=== PATIENT | female | born 1985 | race Caucasian/White ===

== ENCOUNTER 2018-07-08 14:37 | Emergency (ER) | payer MEDICAID, SELFPAY ==
[2018-07-08] VITALS (15 sets, daily range): BP systolic 129–147; BP diastolic 77–93; PULSE 56–86; RESP 10–26; TEMP 36.8–37.1; O2SAT 95–99
--- NOTE | 2018-07-08 15:07 | DI.RAD_ITS ---
SYMPTOM/DIAGNOSIS: CHEST PAIN INTERMITTENT X 2 WEEKS, SEEMS PLEURITIC PA AND LATERAL CHEST: Comparison is made with 02 October 2015. The cardiac and mediastinal contours have a normal appearance. The lungs area well inflated and clear. No infiltrate, effusion or pleural thickening is seen. There is no evidence of pneumothorax. IMPRESSION: Negative chest x-ray.
--- NOTE | 2018-07-08 15:14 | W.ED.GENAD ---
Discharge Plan Disposition Patient Disposition: HOME Discharge Details Chief Complaint: GenMedical Clinical Impression: Chest pain Primary Care Provider: Yady Aragon ED Provider: Edison Hernandez Home Meds and New Rx's Prescriptions: Continue gabapentin 400 MG capsule 400 mg PO HS Qty: 2 RF: 0 albuterol sulfate 8.5 GM HFA aerosol inhaler 1 - 2 puff Inhalation Q6H PRN Qty: 1 RF: 1 methadone 10 MG/1 ML concentrate 100 mg PO DAILY Qty: 1 RF: 6 Discharge Instructions Instructions: Chest Pain (ED) Additional Instructions: Diagnostic testing today was inconclusive. Your ecg had findings consistent with left ventricular hypertrophy. Please contact your primary care physician to arrange follow-up. Return to the ER for any worsening or new concerning symptoms. Referrals: Yady Aragon [Primary Care Provider] - Discharge Data Discharge Date/Time-TO BE ENTERED AT DEPARTURE: 07/08/18 17:31 Medical Decision Making 15:20 --32-year-old female presents with 2 weeks of pleuritic chest pain is reproducible with cough, deep inspiration and certain positions. She is not tachycardic, tachypneic or hypoxic. She has not calf tenderness or swelling. ECG reviewed and interpreted by me: Sinus rhythm 79 bpm, normal axis, greater than 20 mm in aVF consistent with LVH, nondiagnostic. Old ECG reviewed and interpreted by me: LVH was not noted. Suspect costochondritis vs pleurisy. Consider pneumothorax. Will check cxr. Low risk for PE. Will check ddimer. 17:07 --labs reviewed and troponin negative. D-dimer negative. Chest x-ray nondiagnostic. Patient reassessed and remained stable. Suspect costochondritis vs pleurisy. Plan for discharge with outpatient follow-up. Disposition decision was made weighing the risks and benefits of hospitalization versus outpatient treatment, the risk for further decompensation, and the patient's wishes. The patient was stable and requested discharge. Prior to discharge, my usual and customary return precautions were reviewed with the patient- this included follow-up instructions and reason to return to the emergency department if condition worsens, does not improve as expected, or other new concerns arise. Imaging Data Radiologic Study: Imaging: X-Ray Radiologist's impression: Patient Name: FORREST BAJWA #: [id number]: ER Ordering Provider: : REG ER Primary Care Provider: Yady Aragon Date of Exam: 07/08/18ex: F : 1985Age: 32 Exam(s) EXAM: XR Chest, 2 Views EXAM DATE/TIME: 07/08/2018 4:01 PM CLINICAL HISTORY: 32 years old, female; Pain; Chest pain; On breathing; Patient HX: Chest pain intermittent x 2 weeks, seems pleuritic. TECHNIQUE: XR of the chest, 2 views. COMPARISON: CR CHEST 2 VIEWS PA,LAT 10/02/2015 9:28 PM FINDINGS: Lungs: Unremarkable. No consolidation. Pleural space: Unremarkable. No pleural effusion. No pneumothorax. Heart/Mediastinum: Unremarkable. No cardiomegaly. Bones/joints: Unremarkable. IMPRESSION: No acute findings. HPI General Mode of arrival: ambulatory. Date/Time Provider Initiated Documentation: 07/08/18 14:50. Limitations to Documentation: no limitations. Information obtained by: patient. HPI Narrative: 32yo f here with chief complaint of chest pain. Patient notes that for the past 2 weeks she has had intermittent left chest pain that is localized under her left breast and between and below her ribs. Pain is described as sharp. Pain is worse and reproducible with deep breath and with certain positions including sitting straight up at times. Pain can be severe at times. She also notes that she has had a cough recently. She has associated fatigue, bloated abdomen, mild nausea. No fevers. No recent immobility including no recent long distance travel, no surgeries, no lower extremity swelling or pain. Related Data Home Medications Medication Instructions Recorded Confirmed gabapentin 400 mg PO HS #2 04/17/15 07/08/18 albuterol sulfate 1 - 2 puff INHALATION Q6H PRN #1 05/22/15 07/08/18 inhaler methadone 100 mg PO DAILY #1 07/29/15 07/08/18 Allergies Allergy/AdvReac Type Severity Reaction Status Date / Time No Known Allergies Allergy Unverified 07/08/18 14:48 General Stated Complaint: GenMedical SUSI: 3 Review of Systems Review of Systems All systems reviewed & are unremarkable except as noted in HPI and below Cardiovascular Reports chest pain and Denies dyspnea Respiratory Reports cough and Denies dyspnea Gastrointestinal Denies abdominal pain, Reports bloating and Reports nausea PFSH Social History Smoking/Tobacco Use Status: Current every day Social History Smoking/Tobacco Use Status: Current every day Exam Const General: cooperative and no acute distress HENMT Head: normocephalic and atraumatic Mouth: mucous membranes dry Eyes Conjunctivae: normal conjunctivae Sclera: normal sclerae EOM: EOM intact bilaterally Neck Neck: trachea midline and supple Resp Auscultation: clear to auscultation bilaterally, no rales, no rhonchi and no wheezes Cardio Jugular venous pressure: no JVD Rate: regular rate and not tachycardic Rhythm: regular rhythm Heart Sounds: no gallops, no murmurs and no rubs GI Palpation: soft, not firm, no guarding, no masses, not rigid and nontender Skin General skin exam: no rashes or lesions noted Neuro General: alert, awake, oriented x3 and tone normal Extrem General: no calf tenderness bilaterally and no edema Psych Appearance: grossly normal Mental Status: mental status grossly normal Speech and Movement: speech and movement normal Course Vital Signs Temperature 37.1 C 07/08/18 14:43 Pulse 85 07/08/18 14:43 Respiratory Rate 16 07/08/18 14:43 Blood Pressure 132/84 07/08/18 14:43 Temperature 37.1 C 07/08/18 14:43 Temperature Source Temporal Artery Scan 07/08/18 14:43 Pulse 85 07/08/18 14:43 Respiratory Rate 16 07/08/18 14:43 Respiratory Effort Non-Labored 07/08/18 14:46 Blood Pressure 132/84 07/08/18 14:43 Blood Pressure Position Supine 07/08/18 14:43 Oxygen Delivery Method Room Air 07/08/18 14:43 Oxygen Flow Rate 0 07/08/18 14:43 Pain Level 8 07/08/18 14:43
--- NOTE | 2018-07-08 15:22 | ED.GENADUL_ITS ---
Discharge Plan Disposition Patient Disposition: HOME Discharge Details Chief Complaint: GenMedical Clinical Impression: Chest pain Primary Care Provider: Yady Aragon ED Provider: Edison Hernandez Home Meds and New Rx's Prescriptions: Continue gabapentin 400 MG capsule 400 mg PO HS Qty: 2 RF: 0 albuterol sulfate 8.5 GM HFA aerosol inhaler 1 - 2 puff Inhalation Q6H PRN Qty: 1 RF: 1 methadone 10 MG/1 ML concentrate 100 mg PO DAILY Qty: 1 RF: 6 Discharge Instructions Instructions: Chest Pain (ED) Additional Instructions: Diagnostic testing today was inconclusive. Your ecg had findings consistent with left ventricular hypertrophy. Please contact your primary care physician to arrange follow-up. Return to the ER for any worsening or new concerning symptoms. Referrals: Yady Aragon [Primary Care Provider] - Discharge Data Discharge Date/Time-TO BE ENTERED AT DEPARTURE: 07/08/18 17:31 Medical Decision Making 15:20 --32-year-old female presents with 2 weeks of pleuritic chest pain is reproducible with cough, deep inspiration and certain positions. She is not tachycardic, tachypneic or hypoxic. She has not calf tenderness or swelling. ECG reviewed and interpreted by me: Sinus rhythm 79 bpm, normal axis, greater than 20 mm in aVF consistent with LVH, nondiagnostic. Old ECG reviewed and interpreted by me: LVH was not noted. Suspect costochondritis vs pleurisy. Consider pneumothorax. Will check cxr. Low risk for PE. Will check ddimer. 17:07 --labs reviewed and troponin negative. D-dimer negative. Chest x-ray nondiagnostic. Patient reassessed and remained stable. Suspect costochondritis vs pleurisy. Plan for discharge with outpatient follow-up. Disposition decision was made weighing the risks and benefits of hospitalization versus outpatient treatment, the risk for further decompensation , and the patient's wishes. The patient was stable and requested discharge. Prior to discharge, my usual and customary return precautions were reviewed with the patient- this included follow-up instructions and reason to return to the emergency department if condition worsens, does not improve as expected, or other new concerns arise. Imaging Data Radiologic Study: Imaging: X-Ray Radiologist's impression: Patient Name: FORREST BAJWA #: [id number] : ER Ordering Provider: : REG ER Primary Care Provider: Yady Aragon Date of Exam: 07/08/18ex: F : 1985Age: 32 Exam(s) EXAM: XR Chest, 2 Views EXAM DATE/TIME: 07/08/2018 4:01 PM CLINICAL HISTORY: 32 years old, female; Pain; Chest pain; On breathing; Patient HX: Chest pain intermittent x 2 weeks, seems pleuritic. TECHNIQUE: XR of the chest, 2 views. COMPARISON: CR CHEST 2 VIEWS PA,LAT 10/02/2015 9:28 PM FINDINGS: Lungs: Unremarkable. No consolidation. Pleural space: Unremarkable. No pleural effusion. No pneumothorax. Heart/Mediastinum: Unremarkable. No cardiomegaly. Bones/joints: Unremarkable. IMPRESSION: No acute findings. HPI General Mode of arrival: ambulatory . Date/Time Provider Initiated Documentation: 07/08/18 14:50 . Limitations to Documentation: no limitations . Information obtained by: patient . HPI Narrative: 32yo f here with chief complaint of chest pain. Patient notes that for the past 2 weeks she has had intermittent left chest pain that is localized under her left breast and between and below her ribs. Pain is described as sharp. Pain is worse and reproducible with deep breath and with certain positions including sitting straight up at times. Pain can be severe at times. She also notes that she has had a cough recently. She has associated fatigue, bloated abdomen, mild nausea. No fevers. No recent immobility including no recent long distance travel, no surgeries, no lower extremity swelling or pain. Related Data Home Medications Medication Instructions Recorded Confirmed gabapentin 400 mg PO HS #2 04/17/15 07/08/18 albuterol sulfate 1 - 2 puff INHALATION Q6H PRN #1 05/22/15 07/08/18 inhaler methadone 100 mg PO DAILY #1 07/29/15 07/08/18 Allergies Allergy/AdvReac Type Severity Reaction Status Date / Time No Known Allergies Allergy Unverified 07/08/18 14:48 General Stated Complaint: GenMedical SUSI: 3 Review of Systems Review of Systems All systems reviewed & are unremarkable except as noted in HPI and below Cardiovascular Reports chest pain and Denies dyspnea Respiratory Reports cough and Denies dyspnea Gastrointestinal Denies abdominal pain, Reports bloating and Reports nausea PFSH Social History Smoking/Tobacco Use Status: Current every day Social History Smoking/Tobacco Use Status: Current every day Exam Const General: cooperative and no acute distress HENMT Head: normocephalic and atraumatic Mouth: mucous membranes dry Eyes Conjunctivae: normal conjunctivae Sclera: normal sclerae EOM: EOM intact bilaterally Neck Neck: trachea midline and supple Resp Auscultation: clear to auscultation bilaterally, no rales, no rhonchi and no wheezes Cardio Jugular venous pressure: no JVD Rate: regular rate and not tachycardic Rhythm: regular rhythm Heart Sounds: no gallops, no murmurs and no rubs GI Palpation: soft, not firm, no guarding, no masses, not rigid and nontender Skin General skin exam: no rashes or lesions noted Neuro General: alert, awake, oriented x3 and tone normal Extrem General: no calf tenderness bilaterally and no edema Psych Appearance: grossly normal Mental Status: mental status grossly normal Speech and Movement: speech and movement normal Course Vital Signs Temperature 37.1 C 07/08/18 14:43 Pulse 85 07/08/18 14:43 Respiratory Rate 16 07/08/18 14:43 Blood Pressure 132/84 07/08/18 14:43 Temperature 37.1 C 07/08/18 14:43 Temperature Source Temporal Artery Scan 07/08/18 14:43 Pulse 85 07/08/18 14:43 Respiratory Rate 16 07/08/18 14:43 Respiratory Effort Non-Labored 07/08/18 14:46 Blood Pressure 132/84 07/08/18 14:43 Blood Pressure Position Supine 07/08/18 14:43 Oxygen Delivery Method Room Air 07/08/18 14:43 Oxygen Flow Rate 0 07/08/18 14:43 Pain Level 8 07/08/18 14:43
[2018-07-08 15:37] LABS: Abs Immature Grans 0.01 k/cumm (0.0-0.09); Absolute Basophil Count 0.03 k/cumm (0.0-0.2); Absolute Eosinophil Count 0.15 k/cumm (0.0-0.7); Absolute Lymphocyte Count 1.48 k/cumm (1.2-3.4); Absolute Monocyte Count 0.36 k/cumm (0.11-0.7); Absolute Neutrophil Count 2.35 k/cumm (1.2-6.7); Basophils % 0.7; Eosinophils % 3.4; HCT 41.5 % (36.0-46.0); HGB 14.1 g/dL (12.0-15.5); Immature Grans % 0.2; Lymphocytes % 33.8; Mean Corpuscular Hemoglobin 31.5 pg (27.0-33.0); Mean Corpuscular Volume 92.6 fL (80-95); Mean Platelet Volume 10.2 fL (8.0-11.0); Monocytes % 8.2; Neutrophils % 53.7; Platelet Count 189 x1000/uL (130-400); RBC 4.48 m/cumm (4.00-5.20); RBC Distribution Width 12.5 % (11.7-14.6); White Blood Cell Count 4.38 k/cumm (4.4-10.8)
[2018-07-08] MEDS: Lactated Ringers 1,000 ML 1000 ML IV (15:43)
[2018-07-08 15:50] LABS: ALT 20 U/L (12-78); AST 16 U/L (15-37); Albumin 4.1 g/dL (3.4-5.0); Alkaline Phosphatase 58 U/L (46-116); Anion Gap 10.6 mmol/L (3-11); BUN 5 mg/dL (7-18); Bilirubin, Total 0.2 mg/dL (0.2-1.0); CO2 29.4 mmol/L (21.0-32.0); CREATININE 0.77 mg/dL (0.55-1.02); Chloride 101 mmol/L (98-107); Glucose 99 mg/dL (70-100); Potassium 3.6 mmol/L (3.5-5.1); Sodium 141 mmol/L (136-145); Total Protein 7.8 g/dL (6.4-8.2)
[2018-07-08 15:54] LABS: Troponin I < 0.02 ng/mL (0.00-0.06)
[2018-07-08 16:02] LABS: D-Dimer 424 ng/mlFEU (<500)
--- NOTE | 2018-07-08 16:09 | NUR.NOTE ---
pt currently crying stating that ana is currently going through family troubles and is extremely stressed and believes that her chest pain is a result of the stress she is currently under Nursing Note:
--- NOTE | 2018-07-08 16:20 | DI.VRAD_ITS ---
EXAM: XR Chest, 2 Views EXAM DATE/TIME: 07/08/2018 4:01 PM CLINICAL HISTORY: 32 years old, female; Pain; Chest pain; On breathing; Patient HX: Chest pain intermittent x 2 weeks, seems pleuritic. TECHNIQUE: XR of the chest, 2 views. COMPARISON: CR CHEST 2 VIEWS PA,LAT 10/02/2015 9:28 PM FINDINGS: Lungs: Unremarkable. No consolidation. Pleural space: Unremarkable. No pleural effusion. No pneumothorax. Heart/Mediastinum: Unremarkable. No cardiomegaly. Bones/joints: Unremarkable. IMPRESSION: No acute findings. Dictated and Authenticated by: Lydia Bourne MD. Ordering:LANIE CLIFFORD MD
== END 2018-07-08 17:31 | disposition home or self-care (01) ==
PROVIDERS: Emergency Provider Student in an Organized Health Care Education/Training Program; PCP Family Medicine
DX: R07.81 Pleurodynia (principal)
CPT/HCPCS: 36415; 80053; 93005; 96360; 99285; 71046; 83735; 84484; 85025; 85379; 93010; 99284

== ENCOUNTER 2018-09-19 20:46 | Outpatient (REF) | payer MEDICAID, SELFPAY ==
[2018-09-19 21:51] LABS: TSH (W/Ref FT4) 0.86 uIU/mL (0.358-3.74)
== END 2018-09-19 21:06 ==
LOC: NCHCN 20:46
PROVIDERS: PCP Family Medicine; Visit Provider Nurse Practitioner Family
DX: K59.00 Constipation, unspecified (principal)
CPT/HCPCS: 84443

== ENCOUNTER 2019-04-25 13:27 | Outpatient (REF) | payer MEDICAID, SELFPAY ==
[2019-04-25 21:56] LABS: ALT 15 U/L (14-59); AST 12 U/L (15-37); Albumin 4.2 g/dL (3.4-5.0); Alkaline Phosphatase 47 U/L (46-116); BUN 7 mg/dL (7-18); Bilirubin, Total 0.4 mg/dL (0.2-1.0); CREATININE 0.81 mg/dL (0.55-1.02); Calcium 8.9 mg/dL (8.5-10.1); Chloride 106 mmol/L (98-107); Glucose 62 mg/dL (70-100); Lipase 73 U/L (73-393); Potassium 3.4 mmol/L (3.5-5.1); Sodium 142 mmol/L (136-145); Total Protein 7.5 g/dL (6.4-8.2)
[2019-04-25 22:09] LABS: Abs Immature Grans 0.01 k/cumm (0.0-0.09); Absolute Basophil Count 0.03 k/cumm (0.0-0.2); Absolute Eosinophil Count 0.13 k/cumm (0.0-0.7); Absolute Lymphocyte Count 1.28 k/cumm (1.2-3.4); Absolute Monocyte Count 0.39 k/cumm (0.11-0.7); Basophils % 0.7; Eosinophils % 3.1; HCT 37.9 % (36.0-46.0); HGB 12.9 g/dL (12.0-15.5); Immature Grans % 0.2; Mean Corpuscular Hemoglobin 31.9 pg (27.0-33.0); Mean Corpuscular Volume 93.6 fL (80-95); Mean Platelet Volume 11.8 fL (8.0-11.0); Monocytes % 9.4; Neutrophils % 55.6; Platelet Count 222 x1000/uL (130-400); RBC 4.05 m/cumm (4.00-5.20); RBC Distribution Width 12.8 % (11.7-14.6); White Blood Cell Count 4.13 k/cumm (4.4-10.8)
[2019-04-25 22:31] LABS: Hemoglobin A1C 5.3 % (4.5-6.2)
== END 2019-04-25 13:47 ==
LOC: NCHCN 13:27
PROVIDERS: PCP Family Medicine; Visit Provider Nurse Practitioner Family
DX: R10.13 Epigastric pain (principal); R19.7 Diarrhea, unspecified; K59.00 Constipation, unspecified; F41.9 Anxiety disorder, unspecified
CPT/HCPCS: 80053; 83690; 83036; 85025

== ENCOUNTER 2019-05-09 01:40 | Outpatient (CLI) | payer MEDICAID, SELFPAY ==
--- NOTE | 2019-05-09 07:42 | DI.US_ITS ---
EXAM: US ABDOMEN CLINICAL HISTORY: EPIGASTRIC PAIN,R10.13. TECHNIQUE: Ultrasound performed using standard protocol. COMPARISON: None FINDINGS: The liver is normal in size and echogenicity. There is no biliary dilatation or evidence of focal liver lesions. Gallbladder is normal appearance, without evidence of stones or wall thickening. The kidneys normal in size and parenchymal thickness. No hydronephrosis or stones are seen. The spleen is normal in size. There is no ascites. The aorta normal in diameter. IMPRESSION: Negative abdomen ultrasound.
== END 2019-05-09 02:00 ==
PROVIDERS: PCP Family Medicine; Visit Provider Nurse Practitioner Family
DX: R10.13 Epigastric pain (principal)
CPT/HCPCS: 76700

== ENCOUNTER 2019-11-24 15:57 | Outpatient (REF) | payer MEDICAID, SELFPAY ==
[2019-11-25 17:35] LABS: COVID-19 RT-PCR UVMMC Result Negative (Negative)
== END 2019-11-24 16:17 ==
LOC: LBN 15:57
PROVIDERS: PCP Family Medicine; Visit Provider Nurse Practitioner Adult Health
DX: Z11.59 Encounter for screening for other viral diseases (principal)
CPT/HCPCS: U0003

== ENCOUNTER 2020-06-16 15:23 | Outpatient (REF) | payer MEDICAID, SELFPAY ==
[2020-06-19 17:01] LABS: SARS-CoV-2 RNA Not Detected (NotDetected); SARS-CoV-2 RNA Source Nasal/Nares
== END 2020-06-16 15:43 ==
LOC: LBN 15:23
PROVIDERS: PCP Family Medicine; Visit Provider Nurse Practitioner Adult Health
DX: Z11.59 Encounter for screening for other viral diseases (principal)
CPT/HCPCS: U0003

== ENCOUNTER 2020-06-26 20:41 | Outpatient (REF) | payer MEDICAID, SELFPAY ==
[2020-06-30 06:43] LABS: Patient Race White; SARS-CoV-2 RNA Undetected (Undetected); SARS-CoV-2 Specimen Source Nasal
== END 2020-06-26 21:01 ==
LOC: LBN 20:41
PROVIDERS: PCP Family Medicine; Visit Provider Nurse Practitioner Adult Health
DX: Z11.59 Encounter for screening for other viral diseases (principal)
CPT/HCPCS: U0003

== ENCOUNTER 2020-09-26 11:11 | Outpatient (REF) | payer MEDICAID, SELFPAY ==
--- NOTE | 2020-09-26 09:15 | PAPFT_PTH ---
PATIENT: Linette Mittal LOC: [facility] U#:[id number] AGE/SX: 35/F ROOM: RE09/26/[address]: Lolita Esquivel : 1985 BED: DIS: 09/26/2020 SPEC #: [id number] RECD: 09/26/20 17:04 STATUS: JUANY VERGARA #: [id number] MERVIN: 09/26/20 09:[address]: Lolita Esquivel [facility] Cyt[facility] RECD BY: Sarah Johnson ENTERED: 09/26/20 17:05 SP TYPE: PAPFT OTHR DR: Yady Aragon Tissues: 1 - CX/ENDOCX FOR PAP SMEARS Procedures: PAP THIN PREP/UVM Screening HPV DNA PROBE Comments: [id number]
== END 2020-09-26 11:12 | disposition home or self-care (01) ==
LOC: NCHCN 11:11
PROVIDERS: PCP Family Medicine; Visit Provider Nurse Practitioner Family
DX: Z12.4 Encounter for screening for malignant neoplasm of cervix (principal); Z11.51 Encounter for screening for human papillomavirus (HPV)
CPT/HCPCS: 88142; 87624

== ENCOUNTER 2020-10-03 15:36 | Outpatient (REF) | payer MEDICAID, SELFPAY ==
[2020-10-03 15:58] LABS: HCT 38.4 % (36.0-46.0); HGB 13.1 g/dL (11.2-15.7); MCH 31.6 pg (27.0-33.0); MCHC 34.1 % (32.0-36.0); MCV 92.8 fL (80-95); Platelet Count 184 10^3/uL (130-400); RBC 4.14 10^6/uL (3.93-5.22); RDW 11.9 % (11.7-14.6); WBC 5.17 10^3/uL (4.4-10.8)
[2020-10-03 16:25] LABS: ALT 30 U/L (14-59); AST 24 U/L (15-37); Alkaline Phosphatase 52 U/L (46-116); Anion Gap 10.6 mmol/L (3-11); BUN 10 mg/dL (7-18); Bilirubin, Total 0.6 mg/dL (0.2-1.0); CO2 25.4 mmol/L (21.0-32.0); CREATININE 0.7 mg/dL (0.55-1.02); Calculated LDL 139 mg/dL (<100); Chloride 105 mmol/L (98-107); Cholesterol 201 mg/dL (<200); Glucose 80 mg/dL (74-106); HDL Cholesterol 51 mg/dL (40-60); Potassium 4.5 mmol/L (3.5-5.1); Sodium 141 mmol/L (136-145); Total Protein 7.5 g/dL (6.4-8.2); Triglyceride 56 mg/dL (<150)
[2020-10-03 17:41] LABS: Vitamin D 25 Total 16.7 ng/ml (30-100)
== END 2020-10-03 15:37 | disposition home or self-care (01) ==
LOC: NCHCN 15:36
PROVIDERS: PCP Family Medicine; Visit Provider Nurse Practitioner Family
DX: Z13.220 Encounter for screening for lipoid disorders (principal); Z13.228 Encounter for screening for other metabolic disorders; Z13.21 Encounter for screening for nutritional disorder; Z00.00 Encounter for general adult medical examination without abnormal findings
CPT/HCPCS: 80053; 80061; 82306; 85027; 84443

== ENCOUNTER 2021-04-02 16:53 | Outpatient (REF) | payer MEDICAID, SELFPAY ==
[2021-04-03 19:40] LABS: COVID-19 RT-PCR UVMMC Result Negative (Negative)
== END 2021-04-02 16:54 | disposition home or self-care (01) ==
LOC: LBN 16:53
PROVIDERS: PCP Family Medicine; Visit Provider Family Medicine
DX: Z20.822 Contact with and (suspected) exposure to COVID-19 (principal)
CPT/HCPCS: U0003

== ENCOUNTER 2022-03-05 15:16 | Outpatient (REF) | payer MEDICAID, SELFPAY ==
[2022-03-05 15:57] LABS: Anion Gap 8.4 mmol/L (3-11); BUN 10 mg/dL (7-18); CO2 27.6 mmol/L (21.0-32.0); CREATININE 0.8 mg/dL (0.55-1.02); Calcium 9.2 mg/dL (8.5-10.1); Chloride 102 mmol/L (98-107); Glucose 87 mg/dL (74-106); Potassium 3.8 mmol/L (3.5-5.1); Sodium 138 mmol/L (136-145)
[2022-03-05 16:10] LABS: Vitamin D 25 Total 23.1 ng/mL (30-100)
== END 2022-03-05 15:17 | disposition home or self-care (01) ==
LOC: NCHCN 15:16
PROVIDERS: PCP Family Medicine; Visit Provider Nurse Practitioner Family
DX: F41.8 Other specified anxiety disorders (principal); F32.89 Other specified depressive episodes; K59.00 Constipation, unspecified; K21.9 Gastro-esophageal reflux disease without esophagitis; E55.9 Vitamin D deficiency, unspecified
CPT/HCPCS: 80048; 82306; 84443

== ENCOUNTER 2024-01-24 06:09 | Emergency (ER) | payer MEDICAID, SELFPAY ==
[2024-01-24 06:14] VITALS: BP 144/101; PULSE 75; RESP 16; TEMP 36.8; O2SAT 100
--- NOTE | 2024-01-24 06:14 | ED.GENADUL_ITS ---
Discharge Plan Disposition Patient Disposition: Home Condition: Good Discharge Details Clinical Impression: Conjunctivitis Primary Care Provider: Yady Aragon ED Provider: Navjot Shi [place] Meds and New Rx's Prescriptions: New erythromycin 5 mg/gram (0.5 %) ointment 0.5 inch ophthalmic (eye) QID Qty: 3.5 0RF Continued gabapentin 400 MG capsule 400 mg PO HS Qty: 2 albuterol sulfate 8.5 GM HFA aerosol inhaler 1 - 2 puff Inhalation Q6H PRN Qty: 1 Patient Comments: only uses when she has a cold Rx Instructions: 1-2 puffs q6h prn wheezing methadone 10 MG/1 ML concentrate 100 mg PO DAILY Qty: 1 Patient Comments: dose increased 07/16/15 Rx Instructions: pt receives dose daily at [facility] Discharge Instructions Instructions: Conjunctivitis ([facility]) ED, How to Use Eye Drops and Eye Ointment ED Additional Instructions: You were seen in the ED for eye irritation and redness. Given that it has been present for a week and worsening we will treat with antibiotic ointment which you should use 4 times a day for the next 5 to 7 days. Follow-up with primary care end of the week if not improving. Return to ED for any change in vision, increasing eye pain, swelling or redness involving the lids or orbital area. Referrals: Yady Aragon [Primary Care Provider] - [facility] General Mode of arrival: ambulatory . Date/Time Provider Initiated Documentation: 01/24/24 06:14 . Limitations to Documentation: no limitations . Information obtained by: patient . HPI Narrative: Patient presents to ED with left eye redness and discomfort. Patient has had symptoms for about 1 week now. Symptoms seemingly worse as opposed to improving despite using allergy drops. She denies any visual change. She denies pain just discomfort. She has had no other viral or allergy-like symptoms. She does not wear contacts. She does not recall getting anything in her eye. Related Data Home Medications Medication Instructions Recorded Confirmed gabapentin 400 mg capsule 400 mg PO HS ##2 04/17/15 01/24/24 albuterol sulfate 90 mcg/actuation 1 - 2 puff inhalation Q6H PRN ##1 05/22/15 01/24/24 aerosol inhaler methadone 10 mg/mL oral concentrate 100 mg PO DAILY ##1 07/29/15 01/24/24 erythromycin 5 mg/gram (0.5 %) eye 0.5 inch ophthalmic (eye) QID #3.5 01/24/24 ointment grams Previous Rx's Medication Instructions Recorded erythromycin 5 mg/gram (0.5 %) eye 0.5 inch ophthalmic (eye) QID #3.5 01/24/24 ointment grams Allergies Allergy/AdvReac Type Severity Reaction Status Date / Time No Known Allergies Allergy Unverified 01/24/24 06:18 General SUSI: 3 Review of Systems Narrative: Per HPI Exam Narrative Exam Narrative: Const: WDWN female in NAD. VS per triage. HEENT: NC/AT. Normal facial exam. Eyes: PERRL and EOMI. Lids normal. Injected conjunctiva. No obvious foreign body. No fluorescein uptake. Visual acuity per nursing note. Neck: Supple. Trachea midline. Lungs: Normal respiratory effort. Neuro: A+O x 3. Normal speech, mentation, gait. Cranial nerves II - XII grossly intact. No gross motor or sensory deficit. Medical Decision Making Patient presenting to ED with left eye redness and discomfort. Symptoms ongoing for 1 week and worsening. No corneal uptake and no obvious foreign body. No definite purulent discharge but given worsening over course of [address] on antibiotic drops and have her follow-up with primary care end of the week if not improving. Return precautions provided. [facility] All Active Problems (Updated 01/24/24 @ 06:33 by Navjot Shi MD) Conjunctivitis (Acute) Social History Smoking/Tobacco Use Status: Current every day Smoking risk assessment performed?: Yes Drug use: Current Sobriety Do you feel safe in your relationship?: Yes
[2024-01-24] MEDS: Fluorescein STRIPS 100/BOX 1 MG OP (06:23)
[2024-01-24] MEDS: Erythromycin Ophth Oint 3.5 GM TUBE OS (06:51)
[2024-01-24 06:56] VITALS: BP 140/80; PULSE 78; RESP 18; TEMP 36.7; O2SAT 100
== END 2024-01-24 07:00 | disposition home or self-care (01) ==
LOC: ER 06:52
PROVIDERS: Emergency Provider Emergency Medicine; PCP Family Medicine
DX: H10.9 Unspecified conjunctivitis (principal)
CPT/HCPCS: 99283

== ENCOUNTER 2024-08-15 16:56 | Outpatient (REF) | payer SELFPAY ==
[2024-08-15 16:11] LABS: ESR 13 mm/hr (0-20)
[2024-08-15 16:47] LABS: C-Reactive Protein < 0.50 mg/dL (<or=0.5)
--- OUTSIDE RECORDS SUMMARY | 2024-08-15 17:28 | XMS_ITS | Encounter Summary ---
Author Organization [facility] [address] [place] [address] Care Team Providers Care Stock Chaser Name Role Phone Unavailable Primary Care Provider Unavailabl e Encounter Details Date Type Department Care Team (Latest Contact Info) Description 06/17/2020 5:45 PM EST - 06/17/2020 11:59 PM EST [place] [address] Discharge Disposition: Home Social History Tobacco Use Types Packs/Day Years Used Date Smoking Tobacco: Never Assessed Sex and Gender Information Value Date Recorded Sex Assigned at Not on file Gender Identity Not on file Sexual Orientation Not on file documented as of this encounter Plan of Treatment Not on file documented as of this encounter Procedures Procedure Name Priority Date/Time Associated Diagnosis Comments COVID-19 PCR Routine 06/17/2020 7:15 PM EST documented in this encounter Results * COVID-19 PCR (06/17/2020 7:15 PM EST) SARS-CoV-2 RNA Not Detected Not Detected [facility] Comment: This result should be interpreted in combination with the clinical observations, patient history and epidemiological information in making a final diagnosis. For testing of asymptomatic individuals, assay performance characteristics and clinical utility have not been evaluated. Testing for SARS-CoV-2 (Severe acute respiratory syndrome coronavirus 2, formerly known as 2019 novel coronavirus or 2019-nCoV) to aid in the diagnosis of COVID-19 is performed using the [employer] Real[employer] SARS-CoV-2 Assay as authorized by the FDA Emergency Use Authorization (EUA). This EUA assay is intended for In-vitro Diagnostic (IVD) use with respiratory specimens such as nasopharyngeal swabs collected from individuals during the acute phase of infection. This assay is performed based on the instructions for use provided by [employer] and additional guidance provided by CDC and FDA. Testing is performed in the [facility] within the Department of Pathology and Laboratory Medicine at [facility], certified under the Clinical Laboratory Improvement Amendments of 1988 (CLIA), 42 U.S.C. 263a, to perform high complexity tests. Assay performance has been verified according to clinical laboratory regulatory requirements for use with specimens collected from individuals suspected of COVID-19. Test results are provided above. A result of ? Not Detected? indicates that the viral RNA target is not present above the limit of detection, but does not preclude SARS-CoV-2 infection. False negative results may occur if a specimen is improperly collected, transported or handled; if amplification inhibitors are present; or if inadequate numbers of viral particles are present in the specimen. When a diagnostic test is negative, the possibility of a false negative result should be considered in the context of a patient? s recent exposures and the presence of clinical signs and symptoms consistent with COVID-19. A result of ? Detected? indicates that RNA from SARS-CoV-2 was detected and the patient is infected. As required or requested by public health authorities, positive specimens may be sent for additional testing. Positive and negative predictive values for this test are highly dependent on disease prevalence. A result of ? Invalid? indicates that neither the viral RNA targets nor the internal control target was detected. An invalid result suggests the presence of inhibitors. Recollection and re-testing is recommended in the case of an invalid result. CDC COVID-19 criteria for testing on human specimens and clinical management guidance information are available at the CDC Coronavirus Disease 2019 (COVID-19) webpage under ? Information for Healthcare Professionals? (https://www.cdc.gov/coronavirus/2019-ncov/hcp/index.html) Additional information about this and other EUA tests can be found in provider and patient fact sheets at the following FDA website: https://www.fda.gov/medical-devices/cvurnqyzahz-claglep-0162-uvvht-33-wipzlqlwb- use-a wvnxvyxcrcgzs-mrxcewk-cqsvgui/tsdkp-peyoeeazqnt-vwud SARS-CoV-2 RNA Source Nasal [facility] Specimen from nose (specimen) Other / Unknown 06/17/2020 7:15 PM EST 06/19/2020 1:36 AM EST Narrative Resulting Agency Comment Spec In Lab [employer] ORDERABLE S Performing Organization Address City/State/[place] Co de Phone Number [facility] [place] [address] documented in this encounter Visit Diagnoses Not on filedocumented in this encounter
--- OUTSIDE RECORDS SUMMARY | 2024-08-15 17:28 | XMS_ITS | Clinical Summary ---
Author Organization [place] [address] Care Team Providers Care Strip Winder Name Role Phone Unavailable Primary Care Provider Unavailabl e Social History Tobacco Use Types Packs/Day Years Used Date Smoking Tobacco: Never Assessed Sex and Gender Information Value Date Recorded Sex Assigned at Not on file Gender Identity Not on file Sexual Orientation Not on file Plan of Treatment Health Maintenance Due Date Last Done Comments HIV screen 2003 Hepatitis C Screening 2003 Hepatitis B vaccine (0-59 yrs) (1) 2004 Tetanus/Diphtheria/Pertussis Vaccines (1 - Tdap) 08/19 HPV test 2015 PAP Smear 2015 Covid-19 Vaccine ( - 2023- season) 2024 Influenza (Flu) vaccine (1 o f 1 - Influenza standard series) 04/02/2024
--- OUTSIDE RECORDS SUMMARY | 2024-08-15 17:28 | XMS_ITS | Referral Summary ---
Author Organization [facility] Address [address] [place] [address] Care Team Providers Care Pick Remover Name Role Phone Roseanne Gruber STRAW HAT BRIM RAISER OPERATOR Primary Care Provider [phone] Encounters Date Type Department Care Team Description 08/15/2024 Lab Requisition [facility] Pathology & Laboratory Medicine - [facility] [address] [place] [address] Outr Resulting Lab, Provider from Last 3 Months Social History Tobacco Use Types Packs/Day Years Used Date Smoking Tobacco: Never Assessed Comments Unknown Sex and Gender Information Value Date Recorded Sex Assigned at Not on file Legal Sex Female 18:29 EST Gender Identity Not on file Sexual Orientation Not on file Plan of Treatment Not on file Care Teams Pick Remover Relationship Specialty Start Date End Date Roseanne Gruber, MAURICIO [facility] [address] [place], [place] [address] PCP - General 04/10/09
--- OUTSIDE RECORDS SUMMARY | 2024-08-15 17:28 | XMS_ITS | Clinical Summary ---
Author Organization [facility] Address [address] [place] [address] Care Team Providers Care Medical Office Representative Name Role Phone Roseanne Gruber INSIDE SALES Primary Care Provider [phone] Encounters Date Type Department Care Team Description 08/15/2024 Lab Requisition [facility] Pathology & Laboratory Medicine - [facility] [address] [place] [address] Outr Resulting Lab, Provider from Last 3 Months Social History Tobacco Use Types Packs/Day Years Used Date Smoking Tobacco: Never Assessed Comments Unknown Sex and Gender Information Value Date Recorded Sex Assigned at Not on file Legal Sex Female 18:29 EST Gender Identity Not on file Sexual Orientation Not on file Plan of Treatment Health Maintenance Due Date Last Done Comments Hepatitis C Screen 1985 Hepatitis B Vaccine (1 of 3 - 19+ 3-dose series) 08/19 COVID-19 Vaccine ( season) 2024 Care Teams Medical Office Representative Relationship Specialty Start Date End Date Roseanne Gruber, MAURICIO [facility] [address] [place] [address] PCP - General 04/10/09
--- OUTSIDE RECORDS SUMMARY | 2024-08-15 17:28 | XMS_ITS | Encounter Summary ---
Author Organization [facility] Address [address] [place] [address] Care Team Providers Care Network Development Coordinator Name Role Phone Roseanne Gruber SPEECH CORRECTION ASSISTANT Primary Care Provider [phone] Encounter Details Date Type Department Care Team (Late st Contact Info) Description 08/15/2024 Lab Requisition [facility] Pathology & Laboratory Medicine - [facility] [address] [place] [address] Outr Resulting Lab, Provider Social History Tobacco Use Types Packs/Day Years Used Date Smoking Tobacco: Never Assessed Comments Unknown Sex and Gender Information Value Date Recorded Sex Assigned at Not on file Legal Sex Female 18:29 EST Gender Identity Not on file Sexual Orientation Not on file documented as of this encounter Plan of Treatment Scheduled Orders Name Type Priority Associated Diagnoses Orde r Schedule SM (LANTIGUA) ANTIBODY, IGG Lab Routine Ordered: 08/15/2024 MACHINE TAPER ANTIBODY, IGG Lab Routine Ordered : 08/15/2024 DOUBLE STRANDED DNA ANTIBODY , IGG Lab Routine Ordered: 025 documented as of this encounter Visit Diagnoses Not on filedocumented in this encounter Care Teams Network Development Coordinator Relationship Specialty Start Date End Date Roseanne Gruber NP [facility] [address] [place] [address] PCP - General 04/10/09 documented as of this encounter
--- OUTSIDE RECORDS SUMMARY | 2024-08-15 17:29 | XMS_ITS | Encounter Summary ---
Author Organization [facility] Address [address] [place] [address] Care Team Providers Care Nurse Manager Name Role Phone Allyn Roseanne Hernán MARTÍNEZ Primary Care Provider [phone] Encounter Details Date Type Department Care Team (Late st Contact Info) Description 02/27/2002 Results Only [facility] - Maple conversion [address] [place] [address] Kojo Liu MD [address] [place] [address] Social History Tobacco Use Types Packs/Day Years [...] Procedure Name Priority Date/Time Associated Diagnosis Comments SURGICAL PATHOLOGY Routine 02/27/2002 0:00 EDT documented in this encounter Results * SURGICAL PATHOLOGY (02/27/2002 0:00 EDT) Pathology Report: SURGICAL PATHOLOGY REPORT Reports generated via electronic interface contain original data; however they are lacking the format of the original report. Caution should be taken when reading/interpreti ng unformatted reports. Name: ? FORREST BAJWA ? Accession #: ? [id number] ? : ? 1985 (Age: 16) ??F ? Collect Date: ? 02/27/2002 ? Location: ? [facility] ? Receive Date: ? 02/27/2002 ? Provider: KOJO LIU MD Copy to: YASIR LÓPEZ MD ? Final Pathologic Diagnosis: ? Ovary, left, subtotal excision, and fallopian tube, excision: - Simple serous cyst ??of ovary. - Adherent fallopian tube with no pathologic features. ?? Document reviewed and electronically signed by: Radu Ward MD Report ??Date: 03/01/2002 17:15 By the signature above, the attending physician certifies that he/she has personally conducted a gross and/or microscopic examination of the described specimens and rendered or confirmed the above diagnosis. Specimen(s) Received: ? Left ovarian cyst wall, portion ovary, fallopian tube Clinical History: Nullip with asx L ovary cystic mass Gross Description: ? Received in formalin labelled [place] and left ovary cyst wall with portion ovary and fallopian tube is a portion of ovary that is previously excised into two irregular fragments which measure 4.5 x 4.0 x 0.2 cm and 11.0 x 3.0 x 0.2 cm. ??The ovarian wall varies in thickness with less than 0.1 cm in thickness in some areas and 0.2 cm in others. ??The serosal surface is correa-pink with diffuse patches of hemorrhage. ??The inner lining of the ovarian wall is correa-pink and focally hemorrhagic. ??Attached to the larger fragment of ovary is a fallopian tube which measures 4.5 cm in length and 0.3 cm in diameter. ??The fallopian tube has a pink-correa, smooth, glistening serosal surface and is patent. Top Lift Scourer sections of fallopian tube are submitted as (A1). Top Lift Scourer sections of larger portion of ovary with attached fallopian tube are submitted as (A2) to (A7). ??Top Lift Scourer sections of smaller portion of ovary are submitted as (A8) to (A10). ??(Oliver Blair)/[facility] End of Report [facility] 02/27/2002 02/27/2002 16: 04 EDT us Kojo Liu MD PATHOLOGY ORDERABLES Final Resul t [facility] [address] [place] [address] documented in this encounter Visit Diagnoses Not on filedocumented in this encounter Care Teams Nurse Manager Relationship Specialty Start Date End Date Roseanne Gruber NP [facility] [address] [place] [address] PCP - General 04/10/09 documented as of this encounter
--- OUTSIDE RECORDS SUMMARY | 2024-08-15 17:29 | XMS_ITS | Encounter Summary ---
Author Organization [facility] Address [address] [place] [address] Care Team Providers Care Manufacturing Helper Name Role Phone Roseanne Gruber NP Primary Care Provider [phone] Encounter Details Date Type Department Care Team (Latest Contact Info) Description 09/27/2020 Lab Requisition [facility] Pathology & Laboratory Medicine - [facility] [address] [place] [address] Lolita Esquivel, FORMULATION SCIENTIST [address] [place] [phone] Encounter for gynecological examination (general) (routine) without abnormal findings Social History Tobacco Use Types Packs/Day Years [...] Procedure Name Priority Date/Time Associated Diagnosis Comments PAP TEST Today 09/26/2020 9:15 EST Encounter for gynecological examination (general) (routine) without abnormal findings HPV DNA DETECTION WITH GENOTYPING, PCR Today 09/26/2020 9:15 EST Encounter for gynecological examination (general) (routine) without abnormal findings documented in this encounter Results * HUMAN PAPILLOMAVIRUS (HPV) DETECTION-HIGH RISK TYPES (09/26/2020 9:15 EST) HPV other High Risk types, PCR Negative Negative 10/07/2020 15:19 [facility] Comment:No E6 or E7 mRNA is detected from HPV types 16,18,31,33,35,39,45,51,52,56,58,59,66, and 68 by entry level assistant manager mediated amplification. Papanicolaou smear specimen (specimen) CERVIX UTERI STRUCTURE / Unknown 09/26/2020 9:15 EST 10/04/2020 8:38 EST us Lolita Esquivel NP MICROBIOLOGY - GENERAL ORDERABLE S Final Result [facility] [address] [place] [address] * PAP TEST (09/26/2020 9:15 EST) Specimens A. Cervix and/or Endocervix , ThinPrep Imaging System with Manual Evaluation 10/07/2020 15:19 [facility] Specimen Adequacy Satisfactory for Evaluation - transformation zone component present 10/07/2020 15:19 [facility] General Categorization Negative for intraepithelial lesion or malignancy 10/07/2020 15:19 [facility] Attestation . 10/07/2020 15:19 [facility] at 1519 Clinical History See below 10/08/19 15:19 [facility] HPV The result for the Human Papillomavirus (HPV) Detection-High Risk Types is Negative. No E6 or E7 mRNA is detected from HPV types 16,18,31,33,35,39 ,45,51,52,56,58,5 9,66, and 68 by entry level assistant manager mediated amplification.Polina ting was performed on specimen [id number] and was resulted on 10/07/2020 1515 EST by JORDAN, LAB INSTRUMENT RESULTS IN 10/07/2020 15:19 [facility] Performing Lab [facility] 10/07/2020 15:19 [facility] Scanned Images 10/07/2020 15:19 EST [facility] Papanicolaou smear specimen (specimen) CERVIX UTERI STRUCTURE / Unknown 09/26/2020 9:15 EST 09/27/2020 9:51 EST us Lolita Esquivel FORMULATION SCIENTIST PATHOLOGY ORDERABLES Final Resul t [facility] [address] [place] [address] documented in this encounter Visit Diagnoses Diagnosis Encounter for gynecological examination (general) (routine) without abnormal findings documented in this encounter Care Teams Manufacturing Helper Relationship Specialty Start Date End Date Roseanne Gruber NP [facility] [address] [place] [address] PCP - General 04/10/09 documented as of this encounter
--- OUTSIDE RECORDS SUMMARY | 2024-08-15 17:29 | XMS_ITS | Encounter Summary ---
Author Organization [facility] Address [address] [place] [address] Care Team Providers Care Enrollment Manager Name Role Phone Unavailable Primary Care Provider Unavailabl e Encounter Details Date Type Department Care Team (Late st Contact Info) Description 03/21/2009 Orders Only [facility] Laboratory Services - [facility] [address] [place], [place] [address] [place]anne [place], [place] [id number] Social History Tobacco Use Types Packs/Day Years [...] Procedure Name Priority Date/Time Associated Diagnosis Comments HPV DETECTION, HIGH RISK TYPES Routine 03/21/2009 15:12 EDT CYTOPATHOLOGY Routine 03/21/2009 0:00 EDT documented in this encounter Results * HUMAN PAPILLOMA VIRUS DNA TEST (03/21/2009 15:12 EDT) Specimen Description Cervix, ThinPrep vial [facility] Result Negative for HPV types 16, 18, 31, 33, 35, 39, 45, 51, 52, 56, 58, 59, and 68. [facility] Report Status Final 04/03/2009 [facility] 03/21/2009 15:1 2 EDT 03/29/2009 15:12 EDT us Roseanne Goff CNM MICROBIOLOGY - GENERAL ORDERAB LES Final Result [facility] [address] [place] [address] * CYTOPATHOLOGY (03/21/2009 0:00 EDT) Pathology Report: CYTOPATHOLOGY REPORT ? Reports generated via electronic interface contain original data; ? however they are lacking the format of the original report. ? Caution should be taken when reading/interpreti ng unformatted reports. ? Name: ? FORREST BAJWA ? Accession #: ? [id number] ? : ? 1985 (Age: 23) ??F ?Collect Date: ? 03/21/2009 ? Location: ? [facility] ? Receive Date: ? 03/21/2009 ? Provider: ?ROSEANNE GOFF CNM ? Copy to: ? Specimen/Source: ?Pap Test, Cervix/Endocervix, ThinPrep Imaging System ? with manual evaluation ? Last Menstrual Period: ? 6/22/09 ? Previous Gynecologic Pathology: ? ASC-US: 9/5/03, 6/23/05 ASCUS HPV + ? HPV: + 01/22/05, 10/05/06 pap neg ? Other: ? Additional clinical information: 10/01/03 pap neg. HPV indeterminate ? HPVA - HPV testing requested if ASC-US on the current ThinPrep Pap test. ? SPECIMEN ADEQUACY ? Satisfactory for Evaluation ? - transformation zone component present ? GENERAL CATEGORIZATION ? Epithelial Cell Abnormality ? INTERPRETATION ? Squamous Cell Abnormality - Atypical squamous cells, undetermined ? significance (ASC-US). ? EDUCATIONAL NOTES/RECOMMENDATI ONS ? [facility] recommends following the 2006 Consensus Guidelines for the Management of Women with Abnormal Cervical Cancer Screening Tests (JLGTD, ? 2007;11(4:201-222 ). ??Consensus guidelines are available online at ? www.ASCCP.org. ? Document reviewed and electronically signed by: ? Vasquez Magana MD ? Report Date: ??03/28/2009 12:22 ? End of Report ? [facility] 03/21/2009 03/21/2009 us Navarroan Goff CNM PATHOLOGY ORDERABLES Final Res ult [facility] [address] [place] [address] documented in this encounter Visit Diagnoses Not on filedocumented in this encounter
--- OUTSIDE RECORDS SUMMARY | 2024-08-15 17:29 | XMS_ITS | Encounter Summary ---
Author Organization [facility] Address [address] [place] [address] Care Team Providers Care Liquor Inspector Name Role Phone Roseanne Gruber PHOTOENGRAVING PROOFER Primary Care Provider [phone] Encounter Details Date Type Department Care Team (Late st Contact Info) Description 12/02/2009 Results Only [facility] Laboratory Services - [facility] [address] [place] [address] Roseanne Santoro [place], [place] [id number] Social History Tobacco Use Types Packs/Day Years [...] Procedure Name Priority Date/Time Associated Diagnosis Comments CYTOPATHOLOGY Routine 12/02/2009 0:00 EDT documented in this encounter Results * CYTOPATHOLOGY (12/02/2009 0:00 EDT) Pathology Report: CYTOPATHOLOGY REPORT ? Reports generated via electronic interface contain original data; ? however they are lacking the format of the original report. ? Caution should be taken when reading/interpreti ng unformatted reports. ? Name: ? FORREST BAJWA ? Accession #: ? [id number] ? : ? 1985 (Age: 24) ??F ?Collect Date: ? 12/02/2009 ? Location: ? [facility] ? Receive Date: ? 12/03/2009 ? Provider: ?ROSEANNE SANTORO CNM ? Copy to: ? Specimen/Source: ?Pap Test, Cervix/Endocervix, ThinPrep Imaging System ? with manual evaluation ? Last Menstrual Period: ? 6/22/09 ? Menstrual/Pregnanc y Status: ? Post ? Previous Gynecologic Pathology: ? ASC-US: 9/5/03, 6/23/05, 8/20/09 ASCUS HPV negative ? HPV: + 6/23/05, pap 3/6/07 neagative ? Other: ? HPVA - HPV testing requested if ASC-US on the current ThinPrep Pap test. ? SPECIMEN ADEQUACY ? Satisfactory for Evaluation ? - transformation zone component present ? GENERAL CATEGORIZATION ? Negative for Intraepithelial Lesion or Malignancy ? INTERPRETATION ? Reactive cellular changes associated with inflammation present (includes ?? repair). ? Document reviewed and electronically signed by: ? ABDELMONEM ELHOSSEINY MD ? Report Date: ??12/11/2009 14:48 ? End of Report ? [facility] 12/02/2009 12/03/2009 Roseanne Santoro CNM PATHOLOGY ORDERABLES Final Res ult [facility] [address] [place] [address] documented in this encounter Visit Diagnoses Not on filedocumented in this encounter Care Teams Liquor Inspector Relationship Specialty Start Date End Date Roseanne Gruber, PHOTOENGRAVING PROOFER [facility] [address] [place] [address] PCP - General 04/10/09 documented as of this encounter
--- OUTSIDE RECORDS SUMMARY | 2024-08-15 17:29 | XMS_ITS | Encounter Summary ---
Author Organization [facility] Address [address] [place] [address] Care Team Providers Care Exercise Specialist Name Role Phone [place] Roseanne Hernán MARTÍNEZ Primary Care Provider [phone] Encounter Details Date Type Department Care Team (Late st Contact Info) Description 10/05/2006 Results Only [facility] - Maple conversion [address] [place] [address] Ramila Shah, [facility] [address] [place] [phone] Social History Tobacco Use Types Packs/Day Years [...] Priority Date/Time Associated Diagnosis Comments CYTOPATHOLOGY Routine 10/05/2006 0:00 EST documented in this encounter Results * CYTOPATHOLOGY (10/05/2006 0:00 EST) Pathology Report: CYTOPATHOLOGY REPORT Reports generated via electronic interface contain original data; however they are lacking the format of the original report. Caution should be taken when reading/interpreti ng unformatted reports. Name: ? FORREST BAJWA ? Accession #: ? [id number] : ? 1985 (Age: 21) ??F ?Collect Date: ? 10/05/2006 Location: ? [facility] ? Receive Date: ? 10/06/2006 Provider: ?RAMILA SHAH SYSTEM SAFETY ENGINEER Copy to: ? Specimen/Source: ?ThinPrep Pap Test, Cervix/Endocervix, processed on Insiders@ ProjectPrep Imaging System, with manual evaluation Last Menstrual Period: ? 08/21/06 Previous Gynecologic Pathology: ? HPV: + no f/u ASC-US: 01/04 ? SPECIMEN ADEQUACY ? Satisfactory for Evaluation - transformation zone component present GENERAL CATEGORIZATION ? Negative for Intraepithelial Lesion or Malignancy ? Document reviewed and electronically signed by: ? BOLA Bowman(ASCP) ? Report Date: ??10/11/2006 08:25 End of Report [facility] 10/05/2006 10/06/2006 us Ramila Shah SYSTEM SAFETY ENGINEER PATHOLOGY ORDERABLES Final R esult [facility] [address] [place] [address] documented in this encounter Visit Diagnoses Not on filedocumented in this encounter Care Teams Exercise Specialist Relationship Specialty Start Date End Date Roseanne Gruber NP [facility] [address] [place] [address] PCP - General 9/9/09 documented as of this encounter
--- OUTSIDE RECORDS SUMMARY | 2024-08-15 17:29 | XMS_ITS | Encounter Summary ---
Author Organization [facility] Address [address] [place] [address] Care Team Providers Care Lieutenant Firefighter Name Role Phone AllynRoseanne Hernán CEO AND CO FOUNDER Primary Care Provider [phone] Encounter Details Date Type Department Care Team (Late st Contact Info) Description 10/17/2003 Results Only [facility] - Maple conversion [address] [place] [address] Ramila Shah, [facility] [address] [place] [address] [place] [phone] Social History Tobacco Use Types Packs/Day Years [...] Comments HPV DETECTION, HIGH RISK TYPES Routine 10/17/2003 14:20 EST CYTOPATHOLOGY Routine 10/17/2003 0:00 EST documented in this encounter Results * HUMAN PAPILLOMA VIRUS DNA TEST (10/17/2003 14:20 EST) Specimen Description Cervix, ThinPrep vial [facility] Result Result indeterminate. Suggest repeat if clinically indicated. [facility] Report Status Final [id number] [facility] 10/17/2003 14:2 0 EST 10/29/2003 10:32 EST Ramila Shah NUT CHOPPER MICROBIOLOGY - GENERAL ORDER ROS Final Result [facility] [address] [place] [address] * CYTOPATHOLOGY (10/17/2003 0:00 EST) Pathology Report: CYTOPATHOLOGY REPORT Reports generated via electronic interface contain original data; however they are lacking the format of the original report. Caution should be taken when reading/interpreti ng unformatted reports. Name: ? FORREST BAJWA ? Accession #: ? [id number] : ? 1985 (Age: 18) ??F ?Collect Date: ? 10/17/2003 Location: ? [facility] ? Receive Date: ? 10/19/2003 Provider: ?RAMILA SHAH NUT CHOPPER Copy to: ? Specimen/Source: ?ThinPrep Pap Test, Cervix/Endocervix Last Menstrual Period: ? 09/24/03 Other: ? HPVDX - HPV testing requested regardless of diagnosis on current ThinPrep Pap test. ? SPECIMEN ADEQUACY ? Satisfactory for Evaluation - transformation zone component present GENERAL CATEGORIZATION ? Negative for Intraepithelial Lesion or Malignancy INTERPRETATION ? Reactive cellular changes associated with inflammation present (includes repair). ? Document reviewed and electronically signed by: ? Vasquez Magana MD ? Report Date: ??10/26/2003 12:59 End of Report [facility] 10/17/2003 10/19/2003 Ramila Shah NUT CHOPPER PATHOLOGY ORDERABLES Final R esult Performing Organization Address City/State/[facility] Co de Phone Number [facility] [address] [place] [address] documented in this encounter Visit Diagnoses Not on filedocumented in this encounter Care Teams Lieutenant Firefighter Relationship Specialty Start Date End Date Roseanne Gruber, MAURICIO [facility] [address] [place], [place] [address] PCP - General 04/10/09 documented as of this encounter
--- OUTSIDE RECORDS SUMMARY | 2024-08-15 17:29 | XMS_ITS | Encounter Summary ---
Author Organization [facility] Address [address] [place] [address] Care Team Providers Care Media Relations Specialist Name Role Phone Roseanne Gruber CHARGE ENTRY Primary Care Provider [phone] Encounter Details Date Type Department Care Team (Late st Contact Info) Description 01/22/2005 Results Only [facility] - Maple conversion [address] [place] [address] [place] [address] Social History Tobacco Use Types Packs/Day Years [...] Priority Date/Time Associated Diagnosis Comments CYTOPATHOLOGY Routine 01/22/2005 0:00 EDT documented in this encounter Results * CYTOPATHOLOGY (01/22/2005 0:00 EDT) Pathology Report: CYTOPATHOLOGY REPORT Reports generated via electronic interface contain original data; however they are lacking the format of the original report. Caution should be taken when reading/interpreti ng unformatted reports. Name: ? FORREST BAJWA ? Accession #: ? [id number] : ? 1985 (Age: 19) ??F ?Collect Date: ? 01/22/2005 Location: ? [facility] ? Receive Date: ? 01/26/2005 Provider: ?ROSEANNE SANTORO CNM Copy to: ? Specimen/Source: ?ThinPrep Pap Test, Cervix/Endocervix Last Menstrual Period: ? 10/29/04 Menstrual/Pregnanc y Status: ? Previous Gynecologic Pathology: ? ASC-US: 04/06/03 Other: ? Additional clinical information: 10/17/03 pap neg. HPV result indeterminate HPVA - HPV testing requested if ASC-US on the current ThinPrep Pap test. ? SPECIMEN ADEQUACY ? Satisfactory for Evaluation - transformation zone component present GENERAL CATEGORIZATION ? Epithelial Cell Abnormality INTERPRETATION ? Squamous Cell Abnormality - Atypical squamous cells, undetermined significance. EDUCATIONAL NOTES/RECOMMENDATI ONS ? [facility] recommends following the 2001 Consensus Guidelines for the Management of Women with Cervical Cytological Abnormalities (RAPHAEL,2002;287:212 0-9). Management algorithms have been distributed by [facility] and are available online at www.ASCCP.org. ? Document reviewed and electronically signed by: ? DULCE BROCK MD [facility] ? Report Date: ??02/06/2005 18:31 End of Report [facility] 01/22/2005 01/26/2005 us Roseanne Santoro CNM PATHOLOGY ORDERABLES Final Res ult [facility] [address] [place] [address] documented in this encounter Visit Diagnoses Not on filedocumented in this encounter Care Teams Media Relations Specialist Relationship Specialty Start Date End Date Roseanne Gruber, CHARGE ENTRY [facility] [address] [place] [address] PCP - General 04/10/09 documented as of this encounter
--- OUTSIDE RECORDS SUMMARY | 2024-08-15 17:29 | XMS_ITS | Encounter Summary ---
Author Organization [facility] Address [address] [place] [address] Care Team Providers Care Clerk To Justice Name Role Phone Allyn Roseanne Hernán MARTÍNEZ Primary Care Provider [phone] Encounter Details Date Type Department Care Team (Late st Contact Info) Description 11/24/2019 Lab Requisition [facility] Pathology & Laboratory Medicine - [facility] [address] [place] [address] Unknown, Provider, Social History Tobacco Use Types Packs/Day Years [...] Procedure Name Priority Date/Time Associated Diagnosis Comments ZZCOVID-19 TEST [facility] PCR Today 11/24/2019 15:20 EDT COVID-19 TESTING Routine 11/24/2019 15:2 0 EDT documented in this encounter Results * COVID-19 TEST [facility] PCR (11/24/2019 15:20 EDT) COVID-19 rt-PCR Result Negative Negative 11/25/2019 17:29 EDT [facility] Comment: Negative results do not preclude 2019-nCoV infection and should not be used as the sole basis for treatment or other patient management decisions. Negative results must be combined with clinical observations, patient history, and epidemiological information. This test has not been FDA cleared or approved. This test has been authorized by FDA under an EUA for use by authorized laboratories. This test has been authorized only for detection of nucleic acid from 2019-nCoV, not for any other viruses or pathogens. This test is only authorized for the duration of the declaration that circumstances exist justifying the authorization of emergency use of in vitro diagnostic tests for detection and/or diagnosis of 2019-nCoV under section 564(b)(1) of Act, 21 U.S.C ?? 360bbb-3(b) (1), unless the authorization is terminated or revoked sooner. Performed on the [employer] Fusion instrument Swab ENTIRE NASOPHARYNX / Unknown 11/24/2019 15:20 EDT 11/24/2019 21:03 EDT us Provider Unknown MICROBIOLOGY - GENERAL ORDER ROS Final Result [facility] [address] [place] [id number] * COVID-19 TESTING (11/24/2019 15:20 EDT) COVID-19 rt-PCR Result Negative Negative 11/25/2019 17:29 EDT [facility] Comment: Negative results do not preclude 2019-nCoV infection and should not be used as the sole basis for treatment or other patient management decisions. Negative results must be combined with clinical observations, patient history, and epidemiological information. This test has not been FDA cleared or approved. This test has been authorized by FDA under an EUA for use by authorized laboratories. This test has been authorized only for detection of nucleic acid from 2019-nCoV, not for any other viruses or pathogens. This test is only authorized for the duration of the declaration that circumstances exist justifying the authorization of emergency use of in vitro diagnostic tests for detection and/or diagnosis of 2019-nCoV under section 564(b)(1) of Act, 21 U.S.C ?? 360bbb-3(b) (1), unless the authorization is terminated or revoked sooner. Performed on the [employer] Fusion instrument Performing Lab [facility] 11/25/2019 17:29 EDT [facility] Swab ENTIRE NASOPHARYNX / Unknown 11/24/2019 15:20 EDT 11/24/2019 21:03 EDT us Provider Unknown MICROBIOLOGY - GENERAL ORDER ROS Final Result [facility] [address] [place] [address] documented in this encounter Visit Diagnoses Not on filedocumented in this encounter Care Teams Clerk To Justice Relationship Specialty Start Date End Date Roseanne Gruber, MAURICIO [facility] [address] [place], [place] [address] PCP - General 04/10/09 documented as of this encounter
--- OUTSIDE RECORDS SUMMARY | 2024-08-15 17:29 | XMS_ITS | Encounter Summary ---
Author Organization [facility] Address [address] [place] [address] Care Team Providers Care Cigarette Making Machine Operator Name Role Phone [place] Roseanne Hernán MARTÍNEZ Primary Care Provider [phone] Encounter Details Date Type Department Care Team (Late st Contact Info) Description 04/06/2003 Results Only [facility] [address] [place] [address] Ramila Shah, [facility] [address] [place] [phone] Social History Tobacco Use Types Packs/Day Years [...] Priority Date/Time Associated Diagnosis Comments CYTOPATHOLOGY Routine 04/06/2003 0:00 EDT documented in this encounter Results * CYTOPATHOLOGY (04/06/2003 0:00 EDT) Pathology Report: CYTOPATHOLOGY REPORT Reports generated via electronic interface contain original data; however they are lacking the format of the original report. Caution should be taken when reading/interpreti ng unformatted reports. Name: ? FORREST BAJWA ? Accession #: ? [id number] : ? 1985 (Age: 17) ??F ?Collect Date: ? 04/06/2003 Location: ? [facility] ? Receive Date: ? 04/11/2003 Provider: ?RAMILA SHAH BLACKENER Copy to: ? Specimen/Source: ?Conventional Pap Test, Cervix/Endocervix Last Menstrual Period: ? 03/20/03 Hormonal/Contracep tive Status: ? Oral contraceptives ? SPECIMEN ADEQUACY ? Satisfactory for Evaluation - transformation zone component present GENERAL CATEGORIZATION ? Epithelial Cell Abnormality INTERPRETATION ? Squamous Cell Abnormality - Atypical squamous cells, undetermined significance. EDUCATIONAL NOTES/RECOMMENDATI ONS ? [facility] recommends following the 2001 Consensus Guidelines for the Management of Women with Cervical Cytological Abnormalities (RAPHAEL,2002;287:212 0-9). Management algorithms have been distributed by [facility] and are available online at [email or web address]. ? Document reviewed and electronically signed by: ? CORBIN TELLO MD ? Report Date: ??04/16/2003 09:32 End of Report [facility] 04/06/2003 04/11/2003 us Ramila Shah BLACKENER PATHOLOGY ORDERABLES Final R esult [facility] [address] [place] [address] documented in this encounter Visit Diagnoses Not on filedocumented in this encounter Care Teams Cigarette Making Machine Operator Relationship Specialty Start Date End Date Roseanne Gruber NP [facility] [address] [place] [address] PCP - General 04/10/09 documented as of this encounter
--- OUTSIDE RECORDS SUMMARY | 2024-08-15 17:29 | XMS_ITS | Encounter Summary ---
Author Organization [facility] Address [address] [place] [address] Care Team Providers Care Optical Designer Name Role Phone ChristianRoseanne farooq Hernán DEPUTY CLERK OF COURT Primary Care Provider [phone] Encounter Details Date Type Department Care Team (Late st Contact Info) Description 04/03/2021 Lab Requisition [facility] Pathology & Laboratory Medicine - [facility] [address] [place] [address] Outr Resulting Lab, Provider Social History Tobacco [...] Priority Date/Time Associated Diagnosis Comments ZZCOVID-19 TEST [facility] LAB PCR Today 04/02/2021 15:30 EDT COVID-19 TESTING Routine 04/02/2021 15:3 0 EDT documented in this encounter Results * COVID-19 TEST [facility] LAB PCR (04/02/2021 15:30 EDT) Swab ENTIRE NASOPHARYNX / Unknown 04/02/2021 15:30 EDT 04/03/2021 16:00 EDT us Provider Outr Resulting Lab MICROBIOLOGY - GENER AL ORDERABLES Final Result Performing Organization Address [facility] de Phone Number [facility] [address] [place] [address] * COVID-19 TESTING (04/02/2021 15:30 EDT) COVID-19 rt-PCR Result Negative Negative 04/03/2021 19:34 EDT [facility] Comment: This test has not been FDA cleared [...] the authorization is terminated or revoked sooner. Negative results do not preclude 2019-nCoV infection and should not be used as the sole basis for treatment or other patient management decisions. Negative results must be combined with clinical observations, patient history, and epidemiological information. Performed on the [employer] Fusion instrument Performing Lab [place] [facility] 04/03/2021 19:34 EDT [facility] Swab 04/02/2021 15:3 0 EDT 04/03/2021 16:00 EDT us Provider Outr Resulting Lab MICROBIOLOGY - GENER AL ORDERABLES Final Result Performing Organization Address [facility] Co de Phone Number [facility] [address] [place] [address] documented in this encounter Visit Diagnoses Not on filedocumented in this encounter Care Teams Optical Designer Relationship Specialty Start Date End Date Roseanne Gruber NP [facility] [address] [place] [address] PCP - General 04/10/09 documented as of this encounter
--- OUTSIDE RECORDS SUMMARY | 2024-08-15 17:29 | XMS_ITS | Encounter Summary ---
Author Organization [facility] Address [address] [place] [address] Care Team Providers Care Insulation Board Head Saw Operator Name Role Phone [place] Roseanne Hernán MARTÍNEZ Primary Care Provider [phone] Encounter Details Date Type Department Care Team (Late st Contact Info) Description 05/28/2015 Results Only [facility] [phone] Rain Norman, [address] [phone] Social History Tobacco Use Types Packs/Day Years [...] Name Priority Date/Time Associated Diagnosis Comments PAP TEST- RESULT ONLY Routine 05/28/2015 0:00 EDT documented in this encounter Results * PAP TEST- RESULT ONLY (05/28/2015 0:00 EDT) Pathology Report: CYTOPATHOLOGY REPORT Reports generated via electronic interface contain original data; however they are lacking the format of the original report. Caution should be taken when reading/interpreti ng unformatted reports. Name: ? FORREST BAJWA ? Accession #: ? [id number] : ? 1985 (Age: 29) ??F ?Collect Date: ? 05/28/2015 Location: ? [facility] ? Receive Date: ? 05/29/2015 Provider: ?RAIN NORMAN CNM Copy to: ?ROSEANNE KNIGHT JAVA DEVELOPER CONSULTANT ? Specimen/Source: ?Pap Test, Endocervix, ThinPrep Imaging System with manual evaluation Last Menstrual Period: ? 03/16 Menstrual/Pregnanc y Status: ? Previous Gynecologic Pathology: ? ASC-US: 04/06/03, 01/22/05, 03/21/09 HPV: + 01/22/05 Other: ? Additional clinical information: 10/05/06 pap neg, 03/21/09 HPV neg, 12/02/09 pap negative ? SPECIMEN ADEQUACY ? Satisfactory for Evaluation - transformation zone component present GENERAL CATEGORIZATION ? Negative for Intraepithelial Lesion or Malignancy INTERPRETATION ? Reactive cellular changes associated with inflammation present (includes repair). Fungal organisms present morphologically consistent with Meka species. ? Document reviewed and electronically signed by: ? MELVI KWON MD ? Report Date: ??06/03/2015 16:[address] [facility] 05/28/2015 05/29/2015 us Rain Norman CNM PATHOLOGY ORDERABLES F inal Result [facility] [address] [place] [address] documented in this encounter Visit Diagnoses Not on filedocumented in this encounter Care Teams Insulation Board Head Saw Operator Relationship Specialty Start Date End Date Roseanne Knight, MAURICIO [facility] [address] [place] [address] PCP - General 04/10/09 documented as of this encounter
[2024-08-16 12:12] LABS: Sm (Smith) Ab, IgG <8.0 CU (<20.0); dsDNA Ab, IgG <22.0 IU/mL (<27.0)
[2024-08-16 12:30] LABS: RNP Ab, IgG <6.0 CU (<20.0)
[2024-08-17 11:20] LABS: Scl 70 Antibodies, IgG <0.2 U
== END 2024-08-15 16:57 | disposition home or self-care (01) ==
LOC: NCHCN 16:56
PROVIDERS: PCP Family Medicine; Visit Provider Family Medicine
DX: H20.9 Unspecified iridocyclitis (principal)
CPT/HCPCS: 85652; 86140; 86225; 86235